=== PATIENT | male | born 1975 | race Caucasian/White ===

== ENCOUNTER 2016-04-07 22:43 | Emergency (ER) | payer OTHER ==
[~2016-04-07] VITALS: Ht 167.6 cm; Wt 88.5 kg
[2016-04-07 22:54] VITALS: Ht 167.6 cm; Wt 88.5 kg
--- NOTE | 2016-04-08 00:30 | ERD ---
ER Documentation Chief Complaint Date/Time DATE: 04/08/16 TIME: 00:29 Chief Complaint Cough x 3 days that isn't getting better HPI This is a 40-year-old male who presents the emergency department today complaining of cough for the past 3 days that is not getting better. Patient is also complaining of a headache and some chest pressure. States he went to his doctor 2 days ago and was given amoxicillin to treat bronchitis. Denies any fevers or chills ROS All systems reviewed and are negative except as per history of present illness. Medications Home Meds Active Scripts Naproxen* (Naprosyn*) 500 Mg Tablet, 500 MG PO BID Y for PAIN AND/OR INFLAMMATION, #30 TAB Prov:TULIO DAVIS PA-C 04/08/16 Cetirizine Hcl* (Zyrtec*) 10 Mg Capsule, 10 MG PO DAILY, #10 TAB.CHEW Prov:TULIO DAVIS PA-C 04/08/16 Guaifenesin (Mucinex) 1,200 Mg Tab.er.12h, 1200 MG PO BID for 7 Days, TAB Prov:TULIO DAVIS PA-C 04/08/16 Allergies Allergies: Coded Allergies: No Known Allergy (Unverified , 04/07/16) PMhx/Soc Medical and Surgical Hx: pt denies Medical Hx, pt denies Surgical Hx Hx Alcohol Use: No Hx Substance Use: No Hx Tobacco Use: No Smoking Status: Unknown if ever smoked Physical Exam Vitals Vital Signs Date Time Temp Pulse Resp B/P Pulse Ox O2 Delivery O2 Flow Rate FiO2 04/07/16 22:54 98.2 107 20 138/73 97 Physical Exam Const: Talkative, no acute distress Head: Atraumatic Eyes: Normal Conjunctiva. PERRLA. EOM intact. ENT: Normal External Ears, Nose and Mouth. Neck: Full range of motion..~ No meningismus. Resp: Clear to auscultation bilaterally. No absent breath sounds. No wheezing. Cardio: Regular rate and rhythm, no murmurs Abd: Soft, non tender, non distended. Normal bowel sounds Skin: No petechiae or rashes Back: No midline or flank tenderness Ext: No cyanosis, or edema. No calf tenderness. Neur: Awake and alert no focal neurologic deficits. No gait ataxia. Psych: Normal Mood and Affect Results 24 hrs DIAGNOSTIC IMAGING REPORT Patient: DEBBY ALMAZAN : 1975 Age: 40 Sex: M MR #: [id number] DOS: 04/08/16 0000 Ordering MD: TULIO ADVIS PA-C Location: [facility] Room/Bed: PROCEDURE: XR Chest. CLINICAL INDICATION: Cough. TECHNIQUE: Portable AP upright view of the chest was obtained. COMPARISON: None. FINDINGS: The cardiomediastinal silhouette is within upper normal limits. The lungs are clear. There is no evidence for pleural effusion, pneumothorax or pulmonary vascular congestion. The osseous structures are intact with no evidence for acute abnormality. RPTAT:HJJR IMPRESSION: No evidence for acute intrathoracic pathology. Physician Riki Date Time Electronically viewed and signed by Osmin Mejia Physician on 04/08/2016 00:33 JR/ CC: TULIO DAVIS PA-C Procedures/MDM This is a 40-year-old male who presents to the emergency department today complaining of 3 days of persistent cough and chest pressure and headache. An EKG and chest x-ray was obtained EKG read and interpreted by Dr. Mueller rate [address] elevation. No QT prolongation. Possible inferior infarct age indeterminate. Chest x-ray is negative. Low suspicion for pneumonia, PE, abscess, pneumothorax , pleural effusion. Patient was given Parachute here in the emergency department for his headache and headache improved. He has no focal neurologic deficits and no gait ataxia and of low suspicion for acute hemorrhage, mass, abscess. Patient is tachycardic how he are he is afebrile and otherwise well-appearing. His oxygen saturations 97%. Patient will be given a prescription for Mucinex, and Zyrtec. He may continue taking his amoxicillin if he desires. However I do not feel that the patient requires alternative antibiotics at this time given his duration of his symptoms and only been 3 days. Patient will also be given a prescription for Naprosyn for headache patient was also complaining of body aches and may have influenza-like symptoms as well. At this time the patient is stable for discharge and outpatient management. Patient should follow up with their PCP in the next 1-2 days. They may return to the emergency department sooner for any persistent or worsening of symptoms. Patient understood and agreed with the plan. Departure Diagnosis: Primary Impression: Cough Condition: TULIO Ingram PA-C Apr 08, 2016 00:30
--- NOTE | 2016-04-08 00:34 | RADRPT ---
PROCEDURE: XR Chest. CLINICAL INDICATION: Cough. TECHNIQUE: Portable AP upright view of the chest was obtained. COMPARISON: None. FINDINGS: The cardiomediastinal silhouette is within upper normal limits. The lungs are clear. There is no e vidence for pleural effusion, pneumothorax or pulmonary vascular congestion. The osseous structures are intact with no evidence for acute abnormality. RPTAT:HJJR IMPRESSION: No evidence for acute intrathoracic pathology. Physician Riki Date Time Electronically viewed and signed by Physician Riki on 04/08/2016 00:33 JR/
[2016-04-08] MEDS ORDERED: NAPR-260 PO (00:53)
[2016-04-08] MEDS ORDERED: CETI10CA PO (00:53)
[2016-04-08] MEDS ORDERED: GUAI120011 PO (00:53)
[2016-04-08 01:41] VITALS: BP 122/72; PULSE 96; RESP 16
== END 2016-04-08 01:42 | disposition home or self-care (01) ==
LOC: FTE 22:43
DX: R05 Cough (principal); R07.89 Other chest pain
CPT/HCPCS: 71010; 93005; Z7502

== ENCOUNTER 2018-08-06 22:39 | Emergency (ER) | payer MEDICAID, OTHER ==
[~2018-08-06] VITALS: Ht 165.1 cm; Wt 90.4 kg
[~2018-08-06 22:39] MED LIST: BENZ-6 PO; CETI10CA PO; GUAI120011 PO; NAPR-985 PO; PROM6.2515 PO
[2018-08-06 22:46] VITALS: Ht 165.1 cm; Wt 90.4 kg
[2018-08-07] MEDS ORDERED: KETOROLAC 30 MG INJ IM STA (02:52)
[2018-08-07] MEDS ORDERED: ALBU18HF INHALATION (04:13)
[2018-08-07] MEDS ORDERED: IBUP800T48 PO (04:13)
[2018-08-07] MEDS ORDERED: PRED20TA PO (04:13)
--- NOTE | 2018-08-07 04:19 | ERD ---
ER Documentation Chief Complaint Chief Complaint CP, SOB X'S 1 WEEK HPI 42-year-old male who presents to the emergency room complaining of cough and shortness of breath. He states that he was diagnosed with possible bronchitis and started on azithromycin. He does not know why he still having symptoms. Patient describes some cough that is dry nonproductive with chest wall and thoracic pain that is worse with coughing. Moderate shortness of breath. No history of asthma. No fevers or chills. No exertional shortness of breath. ROS All systems reviewed and are negative except as per history of present illness. Medications Home Meds Active Scripts Prednisone* (Prednisone*) 20 Mg Tab, 40 MG PO DAILY for 4 Days, TAB Prov:ELY SMITH MD 08/07/18 Ibuprofen* (Motrin*) 800 Mg Tab, 800 MG PO Q6H PRN for PAIN AND OR ELEVATED TEMP, #30 TAB Prov:ELY SMITH MD 08/07/18 Albuterol Sulfate* (Ventolin HFA*) 18 Gm Hfa.aer.ad, 2 PUFF INHALATION Q4H, #1 INHALER Prov:ELY SMITH MD 08/07/18 Promethazine Hcl* (Promethazine Hcl* Syrup) 6.25 Mg/5 Ml Syrup, 6.25 MG PO Q6H PRN for COUGH, #100 ML Prov:SHU IBARRA PA-C 03/24/18 Benzonatate* (Tessalon Perle*) 100 Mg Capsule, 100 MG PO Q8H PRN for COUGH, #30 CAP Prov:SHU IBARRA PA-C 03/24/18 Naproxen* (Naprosyn*) 500 Mg Tablet, 500 MG PO BID PRN for PAIN AND/OR INFLAMMATION, #30 TAB Prov:TULIO DAVIS-C 04/08/16 Cetirizine Hcl* (Zyrtec*) 10 Mg Capsule, 10 MG PO DAILY, #10 TAB.CHEW Prov:TULIO DAVIS-C 04/08/16 Guaifenesin (Mucinex) 1,200 Mg Tab.er.12h, 1200 MG PO BID for 7 Days, TAB Prov:TULIO DAVIS-C 04/08/16 Allergies Allergies: Coded Allergies: No Known Allergy (Unverified , 04/07/16) PMhx/Soc Medical and Surgical Hx: pt denies Medical Hx, pt denies Surgical Hx Hx Alcohol Use: No Hx Substance Use: No Hx Tobacco Use: No Smoking Status: Never smoker FmHx Family History: No diabetes Physical Exam Vitals Vital Signs Date Temp Pulse Resp B/P (MAP) Pulse Ox O2 O2 Flow FiO2 Time Delivery Rate 08/06/18 97.0 70 18 162/85 96 22:46 (110) Physical Exam General: Well developed, well nourished, no acute distress Head: Normocephalic, atraumatic. Eyes: Pupils equally reactive, EOM intact ENT: Moist mucous membranes Neck: Supple, no lymphadenopathy Respiratory: Lungs clear bilaterally, no distress Cardiovascular: RRR, no murmurs, rubs, or gallops Abdominal: Soft, non-tender, non-distended, no peritoneal signs : Deferred MSK: No edema, no unilateral swelling, 5/5 strength Neurologic: Alert and oriented, moving all extremities, normal speech, no focal weakness, no cerebellar signs Skin: No rash Psych: Normal mood Results 24 hrs Current Medications Medications Dose Sig/Arias Start Time Status Last (Trade) Ordered Route PRN Stop Time Admin Dose Reason Admin Ketorolac 30 mg ONCE STAT 08/07/18 DC 08/07/18 Tromethamine IM 02:52 02:58 (Toradol) 08/07/18 02:53 Procedures/MDM Chest x-ray: I reviewed and interpreted a 1 view of the chest Mediastinum: No enlargement Cardiac silhouette: No cardiomegaly Airspace: Clear lung carroll bilaterally without evidence of pneumothorax Bones: No evidence of fracture EKG: I reviewed and interpreted a 12-lead EKG. Rhythm: Normal sinus rhythm ST Changes: No contiguous ST segment elevations T waves: No contiguous T wave inversions Impression: [No evidence of acute cardiac ischemia] The patient's clinical presentation is very consistent with an acute viral syndrome. The patient does not exhibit any clinical signs or symptoms concerning for serious bacterial infection or systemic illness. Based on history and clinical exam findings the patient does not appear to have evidence of pneumonia, strep pharyngitis, urinary tract infection, bacteremia, sepsis, or meningitis. Chest pain is very reproducible and consistent with muscular skeletal pain. Low concern for dissection, PE, acute coronary syndrome. Chest x-ray is normal. No indication for antibiotics. We discussed follow up with the patient's primary care doctor within 24 to 48 hours as needed. We also discussed return to the emergency room for worsening symptoms or worsening condition. Discharge Medications: Motrin, Ventolin, prednisone Departure Diagnosis: Primary Impression: Acute bronchitis Bronchitis organism: unspecified organism Qualified Codes: J20.9 - Acute bronchitis, unspecified Condition: Stable Patient Instructions: Bronchitis, No Antibiotic (Adult) [facility]errals[facility] Usted se grewal hecho un examen mdico de control que le indica que no est en ly condicin que requiera tratamiento urgente en el Departamento de Emergencia. Un estudio ms profundo y el tratamiento de garcía condicin pueden esperar sin ningn riesgo hasta que usted sea atendida/o en el consultorio de garcía mdico o ly clnica. Es responsabilidad suya arreglar ly kirit para el seguimiento del fidel. MANEJO DE CONDICIONES NO URGENTES EN EL FUTURO 1) Si usted tiene un mdico de atencin primaria: Usted debera llamar a garcía mdico de atencin primaria antes de venir al departamento de emergencia. Despus de las horas de consultorio, garcía doctor o garcía asociado/a est disponible por telfono. El mdico o enfermero de jeff en el servicio telefnico puede asesorarle por pamela medio para atender el problema, o fidel contrario se puede programar ly kirit. 2) Si usted no tiene un mdico de atencin primaria: Llame al mdico o clnica de referencia que aparece abajo shimon las horas de consultorio para hacer ly kirit para que le vean. CLINICAS: [facility] [phone] [id number] [facility] 603 [phone] [id number] [place] 784 [phone] [id number] [facility]. [facility] 018 [phone] [facility]. [place] [id number] [phone] [facility]. [phone] [address] [facility]. [facility] () Usted se grewal hecho un examen mdico de control que le indica que no est en ly condicin que requiera tratamiento urgente en el Departamento de Emergencia. Un estudio ms profundo y el tratamiento de garcía condicin pueden esperar sin ningn riesgo hasta que usted sea atendida/o en el consultorio de garcía mdico o ly clnica. Es responsabilidad suya arreglar ly kirit para el seguimiento del fidel. MANEJO DE CONDICIONES NO URGENTES EN EL FUTURO 1) Si usted tiene un mdico de atencin primaria: Usted debera llamar a garcía mdico de atencin primaria antes de venir al departamento de emergencia. Despus de las horas de consultorio, garcía doctor o garcía asociado/a est disponible por telfono. El mdico o enfermero de jeff en el servicio telefnico puede asesorarle por pamela medio para atender el problema, o fidel contrario se puede programar ly kirit. 2) Si usted no tiene un mdico de atencin primaria: Llame al mdico o condado institucions de referencia que aparece abajo shimon las horas de consultorio para hacer ly kirit para que le vean. SI USTED NO PUEDE PAGAR PARA FELICIA UN MEDICO puede ir a: [facility] [address] [place] [address] [facility] [address] [place] [address] [facility] [address] [place] [address] [facility] [facility] [address] [address] Additional Instructions: Llame al doctor nombrado abajo (Referral Sources) MAANA y kinsey ly KIRIT PARA DENTRO DE LY SEMANA. Dgale a la secretaria que nosotros le instruimos hacer esta kirit.Avise o llame si garcía condicin se empeora antes de la kirit. ELY SMITH MD Aug 07, 2018 04:18
[2018-08-07 04:40] VITALS: BP 122/82; PULSE 64; RESP 16
== END 2018-08-07 04:40 | disposition home or self-care (01) ==
LOC: E/R 22:39
DX: J20.9 Acute bronchitis, unspecified (principal)
CPT/HCPCS: 71045; 93005; 96372; J1885; Z7502